=== PATIENT | male | born 1945 | race Caucasian/White ===

== ENCOUNTER → 2019-09-02 | Outpatient (CLI) | payer MEDICARE, MEDICAID ==
[~2019-09-02] MED LIST: AMLODIPINE BESY10 MG PO; ANTACID650 MG PO; CATAPRES0.2 MG PO; CLONIDINE HCL0.1 MG PO; COUMADIN 5 MG TA5 M1 PO; DIOVAN320 MG PO; DOXAZOSIN MESYLA2 MG PO; GENTAMICIN OPH3.5 G1 OPHTHALMIC; IRON325 PO; LACTULOSE10 GM/15 M PO; LEVAQUIN 250 M250 MG PO; LOPRESSOR50 PO; MIRALAX17 GM PO; NEXIUM 40 MG CA40 M1 PO; POTASSIUM20 PO; SENOKOT-S1 TA1 PO; SIMVASTATIN20 MG PO; VITAMIN D 5050000 I1 PO; VITAMIN D2000 UNIT PO
--- NOTE | 2019-09-02 13:43 | 2DMMODE ---
[place] [address] 2 D/M-MODE ECHOCARDIOGRAM Name: MONO GUARDADO [place] Room: [facility]#: [id number] Admission: 09/02/19 Attend Phys: Florentino Bynum, Discharge: Date of : 47 Date of Service: 09/02/19 1343 Report #: [id number] THIS REPORT FOR: //name// APPROVED REPORT Study performed: 09/02/2019 11:38:23 EXAM: Comprehensive 2D, Doppler, and color-flow Echocardiogram Patient Location: Out-Patient Status: routine BSA: 2.10 HR: 74 bpm BP: 138/57 mmHg Rhythm: NSR Other Information Study Quality: Good Indications Congestive Heart Failure Murmur Dyspnea 2D Dimensions IVSd: 13.95 (7-11mm) LVOT Diam: 20.33 (18-24mm) LVDd: 56.25 mm PWd: 11.16 (7-11mm) Ascending Ao: 27.66 (22-36mm) LVDs: 35.66 (25-40mm) Aortic Root: 29.66 mm Volumes Left Atrial Volume (Systole) LA ESV Index: 42.40 mL/m2 Aortic Valve AoV Peak River.: 1.62 m/s AO Peak Gr.: 10.52 mmHg LVOT Max P.27 mmHg AO Mean Gr.: 5.28 mmHg LVOT Mean P.69 mmHg LVOT Max V: 1.25 m/s AO V2 VTI: 32.93 cm LVOT Mean V: 0.74 m/s KARIS (VTI): 2.40 cm2 LVOT V1 VTI: 24.32 cm Mitral Valve E/A Ratio: 1.12 [place] [address] 2 D/M-MODE ECHOCARDIOGRAM Name: MONO GUARDADO Room: [facility]#: [id number] Admission: 09/02/19 Attend Phys: Florentino Bynum, Discharge: Date of : 47 Date of Service: 09/02/19 1343 Report #: [id number] MV Decel. Time: 164.98 ms MV E Max River.: 1.16 m/s MV PHT: 47.84 ms MVA (PHT): 4.60 cm2 TDI E/Lateral E': 12.89 E/Medial E': 16.57 Medial E' River.: 0.07 m/s Lateral E' River.: 0.09 m/s Pulmonary Valve PV Peak River.: 0.95 m/s PV Peak Gr.: 3.64 mmHg Tricuspid Valve RAP Estimate: 5.00 mmHg TR Peak Gr.: 48.99 mmHg RVSP: 54.00 mmHg PA Pressure: 54.00 mmHg Left Ventricle The left ventricle is normal size. severe hypokinesis of the base of the inferior wall Mild concentric left ventricular hypertrophy. Left ventricular systolic function is borderline. LVEF is 50-55%. The left ventricular diastolic function is normal. Right Ventricle The right ventricle is normal size. The right ventricular systolic function is normal. Atria Left atrium is moderately dilated. The right atrium size is normal. Aortic Valve Mild aortic valve sclerosis. No aortic regurgitation is present. There is no aortic valvular stenosis. Mitral Valve The mitral valve is normal in structure. Mild mitral regurgitation. No evidence of mitral valve stenosis. Tricuspid Valve The tricuspid valve is normal in structure. Mild tricuspid regurgitation. estimated pa pressure 50 mm Hg Pulmonic Valve Pulmonic valve is not well visualized. There [place] [address] 2 D/M-MODE ECHOCARDIOGRAM Name: MONO GUARDADO Room: [facility]#: [id number] Admission: 09/02/19 Attend Phys: Florentino Bynum, Discharge: Date of : 47 Date of Service: 09/02/19 1343 Report #: [id number] regurgitation. Great Vessels The aortic root is normal in size. IVC is normal in size and collapses >50% with inspiration. Pericardium There is no pericardial effusion. <Conclusion> LVEF is 50-55%. severe hypokinesis of the base of the inferior wall Mild concentric left ventricular hypertrophy. Left atrium is moderately dilated. Mild mitral regurgitation. Mild tricuspid regurgitation. estimated pa pressure 50 mm Hg <ELECTRONICALLY SIGNED> By: Florentino Trejo MD, FACC 09/02/191342 [id number] Florentino Trejo MD, FACC /INF
== END ==
LOC: M.CRD 11:00
DX: I08.3 Combined rheumatic disorders of mitral, aortic and tricuspid valves (principal); I50.9 Heart failure, unspecified

== ENCOUNTER → 2019-10-12 | Outpatient (CLI) | payer MEDICARE, MEDICAID | LOC: M.CT 10-09 11:00 | DX: J43.9 Emphysema, unspecified (principal); I25.10 Atherosclerotic heart disease of native coronary artery without angina pectoris; I51.7 Cardiomegaly; J02.9 Acute pharyngitis, unspecified; M79.18 Myalgia, other site ==